=== PATIENT | male | born 1980 | race Two or more races ===

== ENCOUNTER 2020-01-03 12:11 | Emergency (ER) | payer SELFPAY ==
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
== END 2020-01-03 14:02 | disposition home or self-care (01) ==
LOC: JP.ED 12:11
DX: M54.42 Lumbago with sciatica, left side (principal); M62.830 Muscle spasm of back; Z87.891 Personal history of nicotine dependence
CPT/HCPCS: 99283

== ENCOUNTER 2020-09-26 11:39 | Emergency (ER) | payer SELFPAY ==
[2020-09-26] MEDS ORDERED: Ketorolac 60 MG/2 ML SDV IM ONE (12:06)
--- NOTE | 2020-09-26 12:11 | EDM.PDOC ---
ED HPI GENERAL MEDICAL PROBLEM - General Chief Complaint: Chest Pain Stated Complaint: CHEST PAIN FOUR DAYS Time Seen by Provider: 09/26/20 11:50 Source of Information: Reports: Patient, Amusement Ride Operator. Denies: Old Records History Limitations: Reports: Other (no old records, does not speak Macedonian) - History of Present Illness INITIAL COMMENTS - FREE TEXT/NARRATIVE: 40 yo black, Angolan speaking male with no local provider who has lived here for a year presents with L sided chest pain that has been present for 4 days worse with coughing or deep breathing. No fever or increased cough. He smokes marijuana. No calf pain. No known injury to his chest. Onset: Gradual Onset Date: 09/22/20 Duration: Day(s): (4), Waxing/Waning Location: Reports: Chest Quality: Reports: Other (unable to describe) Severity: Moderate Improves with: Reports: Rest Worsens with: Reports: Breathing Context: Reports: Other (See HPI) Associated Symptoms: Reports: Chest Pain. Denies: Cough, Fever/Chills, Shortness of Breath Treatments GUM WORKER: Reports: Other (see below) (none) Left Chest Pain Score (Numeric/FACES): 7 - Related Data Allergies Allergy/AdvReac Type Severity Reaction Status Date / Time No Known Allergies Allergy Verified 09/26/20 11:57 Home Meds: Home Meds NK [No Known Home Meds] 01/03/20 [History] Past Medical History Musculoskeletal History: Reports: Back Pain, Chronic Other Musculoskeletal History: 2 years ago lifting heavy and got the pain HAD MRI Social & Family History - Tobacco Use Tobacco Use Status *Q: Never Tobacco User Second Hand Smoke Exposure: No - Caffeine Use Caffeine Use: Reports: None - Recreational Drug Use Recreational Drug Use: Yes Recreational Drug Type: Reports: Marijuana/Hashish Recreational Drug Use Frequency: Daily ED ROS GENERAL - Review of Systems Review Of Systems: See Below Constitutional: Reports: No Symptoms HEENT: Reports: No Symptoms Respiratory: Reports: No Symptoms Cardiovascular: Reports: Chest Pain (L side). Denies: Dyspnea on Exertion, Edema, Lightheadedness, Palpitations Endocrine: Reports: No Symptoms GI/Abdominal: Reports: No Symptoms : Reports: No Symptoms Musculoskeletal: Reports: No Symptoms Skin: Reports: No Symptoms Neurological: Reports: No Symptoms Psychiatric: Reports: No Symptoms ED EXAM, GENERAL - Physical Exam Exam: See Below Exam Limited By: No Limitations General Appearance: Alert, WD/WN, No Apparent Distress Eye Exam: Bilateral Eye: Normal Inspection Ears: Normal External Exam, Normal Canal, Hearing Grossly Normal Ear Exam: Bilateral Ear: Auricle Normal, Canal Normal Nose: Normal Inspection, No Blood Throat/Mouth: Normal Inspection, Normal Lips, Normal Voice, No Airway Compromise Head: Atraumatic, Normocephalic Neck: Normal Inspection Respiratory/Chest: No Respiratory Distress, Lungs Clear, Normal Breath Sounds, No Accessory Muscle Use. No: Chest Non-Tender (L chest wall very painful on palpation) Cardiovascular: Regular Rate, Rhythm, No Edema GI/Abdominal: Soft, Non-Tender, No Distention. No: Distended, Tender Extremities: Normal Inspection, Normal Range of Motion, Non-Tender, No Pedal Edema. No: Pedal Edema, Angi's Sign, Leg Pain, Increased Warmth, Redness Neurological: Alert, Oriented, CN II-XII Intact, Normal Cognition, No Motor/Sensory Deficits Psychiatric: Normal Affect, Normal Mood Skin Exam: Warm, Dry, Intact, Normal Color, No Rash Course - Vital Signs Last Recorded V/S: Last Vital Signs Temp 36.8 C 09/26/20 11:59 Pulse 85 09/26/20 11:59 Resp 17 09/26/20 11:59 BP 130/84 09/26/20 11:59 Pulse Ox 99 09/26/20 11:59 - Orders/Labs/Meds Orders: Active Orders 24 hr Category Date Time Status Cardiac Monitoring [RC] .As Directed Care 09/26/20 11:55 Active EKG Documentation Completion [RC] ASDIRECTED Care 09/26/20 11:55 Active Ketorolac [Toradol] Med 09/26/20 12:06 Once 60 mg IM ONETIME ONE EKG 12 Lead [EK] Routine Ther 09/26/20 11:55 Stop Req Medication Orders Ketorolac Tromethamine (Ketorolac 60 Mg/2 Ml Sdv) 60 mg IM ONETIME ONE Stop: 09/26/20 12:07 Meds: Medications Generic Name Dose Route Start Last Admin Trade Name Freq PRN Reason Stop Dose Admin Ketorolac Tromethamine 60 mg 09/26/20 12:06 Ketorolac 60 Mg/2 Ml Sdv IM 09/26/20 12:07 ONETIME ONE Departure - Departure Time of Disposition: 12:30 Disposition: Home, Self-Care 01 Condition: Good Clinical Impression: Chest wall pain Instructions: Chest Wall Pain, [id number] Referrals: PCP,None [Primary Care Provider] - Additional Instructions: Take acetaminophen up to 1000 mg every 6 hrs as needed for pain relief. Add ibuprofen 600 mg every 6 hrs starting after 6 pm today for added pain relief, take this medicine with food. Call a clinic tomorrow and schedule an appt for ER follow up and to get established for continued care. Sepsis Event Note (ED) - Evaluation Sepsis Screening Result: No Definite Risk - Focused Exam Vital Signs: Vital Signs Temp Pulse Resp BP Pulse Ox 09/26/20 11:59 36.8 C 85 17 130/84 99 - My Orders Last 24 Hours: My Active Orders 09/26/20 11:55 Cardiac Monitoring [RC] .As Directed EKG Documentation Completion [RC] ASDIRECTED EKG 12 Lead [EK] Routine 09/26/20 12:06 Ketorolac [Toradol] 60 mg IM ONETIME ONE - Assessment/Plan Last 24 Hours: My Active Orders 09/26/20 11:55 Cardiac Monitoring [RC] .As Directed EKG Documentation Completion [RC] ASDIRECTED EKG 12 Lead [EK] Routine 09/26/20 12:06 Ketorolac [Toradol] 60 mg IM ONETIME ONE
== END 2020-09-26 12:55 | disposition home or self-care (01) ==
LOC: JP.ED 11:39
DX: R07.89 Other chest pain (principal)
CPT/HCPCS: 96372; 99284; J1885